=== PATIENT | female | born 1950 | race African-American/Black ===

== ENCOUNTER → 2022-06-23 | Day surgery (SDC) | payer MEDICARE, MEDICAID ==
[~2022-06-23] VITALS: Ht 167.6 cm; Wt 63.5 kg
[~2022-06-23] MED LIST: ALBU18HF2 IH; ASPI-1497 PO; BENA10TA74 PO; CYAN500T9 PO; FLUT1DIS3 IH; GABA800T97 PO; LACTATED RINGERS 1,000 ML IV SCH; LEVE500T98 PO; NIFE-32 PO; T4 PO
[2022-06-23 09:58] LABS: *AMPHETAMINES SCREEN URINE NEGATIVE (NEGATIVE); *BARBITURATES SCREEN URINE NEGATIVE (NEGATIVE); *BENZODIAZEPINES SCREEN URINE NEGATIVE (NEGATIVE); *COCAINE SCREEN URINE PRESUMTIVE POSITIVE (NEGATIVE); CANNABINOID URINE SCREEN PRESUMTIVE POSITIVE (NEGATIVE); METHADONE URINE SCREEN NEGATIVE (NEGATIVE); OPIATES URINE SCREEN PRESUMTIVE POSITIVE (NEGATIVE); PHENCYCLIDINE URINE SCREEN NEGATIVE (NEGATIVE)
== END | disposition home or self-care (01) ==
LOC: OR 08:07
PROVIDERS: ATTEND Specialist
DX: L02.213 Cutaneous abscess of chest wall (principal); Z53.8 Procedure and treatment not carried out for other reasons; I10 Essential (primary) hypertension; M19.90 Unspecified osteoarthritis, unspecified site; Z87.891 Personal history of nicotine dependence; Z79.899 Other long term (current) drug therapy; Z98.890 Other specified postprocedural states; Z20.822 Contact with and (suspected) exposure to COVID-19
CPT/HCPCS: 80305; 87426; 93005